=== PATIENT | male | born 1995 | race Caucasian/White ===

== ENCOUNTER 2017-01-12 14:04 | Emergency (ER) | payer BC ==
[~2017-01-12] VITALS: Ht 182.9 cm; Wt 83.1 kg
[2017-01-12 14:11] VITALS: Ht 182.9 cm; Wt 83.1 kg
[2017-01-12] MEDS ORDERED: SODIUM CHLORIDE 0.9% 1000ML 1,000 ML IV STA ×2 (14:17)
[2017-01-12 14:30] LABS: BASO % 0.3 %; BASO ABS # 0.03 K/uL (0-0.2); COMPLETE YES; HEMATOCRIT 48.3 % (42-52); IG% 0.2 %; LYMPH % 21.4 %; LYMPH ABS # 2.12 K/uL (1.2-3.4); MEAN CELL VOLUME 83.6 fL (80-100); MEAN CORPUSCULAR HEMOGLOBIN 30.1 pg (25-34); MONO % 8.9 %; NEUT % 68.2 %; PLATELET COUNT 268 K/uL (130-400); RED BLOOD COUNT 5.78 M/uL (4.7-6.1); WHITE BLOOD COUNT 9.91 K/uL (4.8-10.8)
[2017-01-12 14:49] LABS: BUN/CREATININE RATIO 9.6 (10-20); CREATININE 1.1 mg/dl (0.60-1.40)
[2017-01-12 15:07] LABS: URINE APPEARANCE CLEAR (CLEAR); URINE BILIRUBIN NEG (NEG); URINE COLOR YELLOW; URINE NITRITE NEG (NEG); URINE PH 7.5 (4.5-7.5); URINE SPECIFIC GRAVITY 1.007 (1.000-1.030); UROBILINOGEN NEG (NEG); ZZUR CULT IF INDIC CLEAN CATCH NO
[2017-01-12 15:08] LABS: MANUAL MICROSCOPIC REQUIRED? NO; REVIEW REQ? NO
[2017-01-12] MEDS ORDERED: OPTIRAY 320 IV PRN (15:45)
--- NOTE | 2017-01-12 15:56 | DIAGNOSTIC IMAGING REPORT ---
CT OF THE ABDOMEN AND PELVIS WITH CONTRAST CLINICAL HISTORY: Lower abdominal pain. Bloody stool. COMPARISON STUDY: None. TECHNIQUE: Following IV administration of 115 mL of Optiray-320, axial images of the abdomen and pelvis were obtained from the lung bases to the proximal femurs. Images were reviewed in the axial, sagittal, and coronal planes. IV contrast was administered without complication. CT DOSE: 362.16 mGy.cm FINDINGS: The liver, spleen, adrenal glands, kidneys and pancreas are normal. There is no hydronephrosis. The caliber and wall thickness of small and large bowel are normal. The appendix is partially visualized. Visualized portions of the appendix are normal in caliber, measuring 6 mm. There is no periappendiceal infiltration. There is no pneumatosis, free air or portal venous gas. Skeletal structures are unremarkable. Sensitivity for detection of mucosal lesions is diminished given CT technique. IMPRESSION: 1. No acute process within the abdomen or pelvis. 2. Decreased sensitivity for detection of mucosal lesions given CT technique. Electronically signed by: Héctor Rubio M.D. 01/12/2017 3:54 PM Dictated Date/Time: 01/12/2017 3:50 PM
[2017-01-12 17:12] VITALS: BP 116/66; PULSE 83; TEMP 36.8; O2SAT 100
--- NOTE | 2017-01-12 17:51 | EMERGENCY ROOM VISIT NOTE ---
History Report prepared by Wilber: Sammi Atkinson Under the Supervision of: Dr. Agustin Mccann M.D. First contact with patient: 14:16 Chief Complaint: GI ASSESSMENT Stated Complaint: BLOOD IN STOOL Nursing Triage Summary: Pt reports he began having bloody diarrhea starting last evening. Now presents in persistent bloody diarrhea and mild mid lower abdominal pain. Pt reports this has happened in the past and was told it was d/t his eating habits and drinking. History of Present Illness The patient is a 21 year old male who presents to the Emergency Room with complaints of persistent diarrhea that started last night. The patient has had two loose bowel movements since last night. He does notice small amounts of red blood in his stool. Additional associated symptoms include constant lower abdominal discomfort that he describes as a pressure. This discomfort started this morning. He rates this discomfort a 3/10 in intensity. It does feel a little better after a bowel movement. The patient had a similar episode of rectal bleeding a couple years ago. He states he followed up with GI who found a "red brittany" in his stomach via EGD. The patient notes that these symptoms are likely related to drinking alcohol as they occurred after an episode of binge drinking both times. The patient is otherwise healthy. He does not take any medications regularly. He denies prior surgeries and any significant family history. Pt denies LOC, headache, fevers, chills, diaphoresis, visual changes, neck pain , chest pain, breathing difficulties, nausea, vomiting, back pain, melena, rectal pain, urinary symptoms, numbness, weakness, lymphadenopathy, rash, or other complaints. Source of History: patient Onset: Last night Position: other (GI system) Timing: other (Persistent) Modifying Factors (Relieving): other (None) Associated Symptoms: + abdominal pain, + hematochezia Review of Systems See HPI for pertinent positives and negatives. A total of ten systems were reviewed and were otherwise negative. Past Medical & Surgical Medical Problems: (1) No chronic diseases present Family History Diabetes mellitus Social History Smoking Status: Never Smoker Alcohol Use: occasionally Drug Use: none Marital Status: single Housing Status: lives with roommate Occupation Status: [employer] student Current/Historical Medications No Active Prescriptions or Reported Meds Allergies Coded Allergies: Amoxicillin (Verified Allergy, Mild, RASH, 07/11/14) Physical Exam Vital Signs Date Time Temp Pulse Resp B/P Pulse Ox O2 Delivery O2 Flow Rate FiO2 4/15/17 17:12 36.8 83 18 116/66 100 01/12/17 17:11 83 18 116/66 100 Room Air 01/12/17 16:32 81 18 118/68 100 Room Air 01/12/17 14:41 90 01/12/17 14:11 36.8 97 18 158/108 100 Room Air Physical Exam GENERAL: Awake, alert, well-appearing, in no distress HENT: Normocephalic, atraumatic. Oropharynx unremarkable. EYES: Normal conjunctiva. Sclera non-icteric. NECK: Supple. No nuchal rigidity. FROM. No JVD. RESPIRATORY: Clear to auscultation. CARDIAC: Regular rate, normal rhythm. Extremities warm and well perfused. Pulses equal. ABDOMEN: Soft, non-distended. No tenderness to palpation. No rebound or guarding. No masses. RECTAL: No external abnormalities or fissure noted. No gross blood, but Hemoccult positive. MUSCULOSKELETAL: Chest examination reveals no tenderness. The back is symmetrical on inspection without obvious abnormality. There is no CVA tenderness to palpation. No joint edema. LOWER EXTREMITIES: Calves are equal size bilaterally and non-tender. No edema. No discoloration. NEURO: Normal sensorium. No sensory or motor deficits noted. SKIN: No rash or jaundice noted. Medical Decision & Procedures ER Provider Diagnostic Interpretation: CT results as stated below per my review and radiologist interpretation CT OF THE ABDOMEN AND PELVIS WITH CONTRAST CLINICAL HISTORY: Lower abdominal pain. Bloody stool. COMPARISON STUDY: None. TECHNIQUE: Following IV administration of 115 mL of Optiray-320, axial images of the abdomen and pelvis were obtained from the lung bases to the proximal femurs. Images were reviewed in the axial, sagittal, and coronal planes. IV contrast was administered without complication. CT DOSE: 362.16 mGy.cm FINDINGS: The liver, spleen, adrenal glands, kidneys and pancreas are normal. There is no hydronephrosis. The caliber and wall thickness of small and large bowel are normal. The appendix is partially visualized. Visualized portions of the appendix are normal in caliber, measuring 6 mm. There is no periappendiceal infiltration. There is no pneumatosis, free air or portal venous gas. Skeletal structures are unremarkable. Sensitivity for detection of mucosal lesions is diminished given CT technique. IMPRESSION: 1. No acute process within the abdomen or pelvis. 2. Decreased sensitivity for detection of mucosal lesions given CT technique. Electronically signed by: Héctor Rubio M.D. 01/12/2017 3:54 PM Dictated Date/Time: 01/12/2017 3:50 PM Laboratory Results 01/12/17 14:20 Red Blood Count 5.78, Mean Corpuscular Volume 83.6, Mean Corpuscular Hemoglobin 30.1, Mean Corpuscular Hemoglobin Concent 36.0, Mean Platelet Volume 10.0, Neutrophils (%) (Auto) 68.2, Lymphocytes (%) (Auto) 21.4, Monocytes (%) (Auto) 8.9, Eosinophils (%) (Auto) 1.0, Basophils (%) (Auto) 0.3, Neutrophils # (Auto) 6.76, Lymphocytes # (Auto) 2.12, Monocytes # (Auto) 0.88, Eosinophils # (Auto) 0.10, Basophils # (Auto) 0.03 01/12/17 14:20 Test 01/12/17 14:20 01/12/17 14:35 White Blood Count 9.91 K/uL (4.8-10.8) Red Blood Count 5.78 M/uL (4.7-6.1) Hemoglobin 17.4 g/dL (14.0-18.0) Hematocrit 48.3 % (42-52) Mean Corpuscular Volume 83.6 fL (80-100) Mean Corpuscular Hemoglobin 30.1 pg (25-34) Mean Corpuscular Hemoglobin Concent 36.0 g/dl (32-36) Platelet Count 268 K/uL (130-400) Mean Platelet Volume 10.0 fL (7.4-10.4) Neutrophils (%) (Auto) 68.2 % Lymphocytes (%) (Auto) 21.4 % Monocytes (%) (Auto) 8.9 % Eosinophils (%) (Auto) 1.0 % Basophils (%) (Auto) 0.3 % Neutrophils # (Auto) 6.76 K/uL (1.4-6.5) Lymphocytes # (Auto) 2.12 K/uL (1.2-3.4) Monocytes # (Auto) 0.88 K/uL (0.11-0.59) Eosinophils # (Auto) 0.10 K/uL (0-0.5) Basophils # (Auto) 0.03 K/uL (0-0.2) RDW Standard Deviation 36.2 fL (36.4-46.3) RDW Coefficient of Variation 12.0 % (11.5-14.5) Immature Granulocyte % (Auto) 0.2 % Immature Granulocyte # (Auto) 0.02 K/uL (0.00-0.02) Anion Gap 5.0 mmol/L (3-11) Est Creatinine Clear Calc Drug Dose 115.6 ml/min Estimated GFR () 109.9 Estimated GFR (Non- 94.8 BUN/Creatinine Ratio 9.6 (10-20) Calcium Level 10.0 mg/dl (8.5-10.1) Total Bilirubin 0.6 mg/dl (0.2-1) Direct Bilirubin 0.1 mg/dl (0-0.2) Aspartate Amino Transf (AST/SGOT) 16 U/L (15-37) Alanine Aminotransferase (ALT/SGPT) 30 U/L (12-78) Alkaline Phosphatase 71 U/L (45-117) Total Protein 9.3 gm/dl (6.4-8.2) Albumin 5.1 gm/dl (3.4-5.0) Lipase 115 U/L (73-393) Urine Color YELLOW Urine Appearance CLEAR (CLEAR) Urine pH 7.5 (4.5-7.5) Urine Specific [place] 1.007 (1.000-1.030) Urine Protein NEG (NEG) Urine Glucose (UA) NEG (NEG) Urine Ketones NEG (NEG) Urine Occult Blood NEG (NEG) Urine Nitrite NEG (NEG) Urine Bilirubin NEG (NEG) Urine Urobilinogen NEG (NEG) Urine Leukocyte Esterase NEG (NEG) Laboratory results reviewed by me Medications Administered Medications (Trade) Dose Ordered Sig/Kaitlin Route Start Time Stop Time Status Last Admin Dose Admin Sodium Chloride 1,000 ml @ 999 mls/hr Q1H1M STAT IV 01/12/17 14:17 01/12/17 15:17 DC 01/12/17 14:36 999 MLS/HR Sodium Chloride (Nss 1000ml) 1,000 ml @ 125 mls/hr Q8H STAT IV 01/12/17 14:17 01/12/17 22:16 01/12/17 15:17 125 MLS/HR ED Course 1410: The patient was evaluated in room B9. A complete history and physical exam was performed. 1417: Ordered Sodium Chloride 1,000 ml @ 125 mlshr IV, Sodium 1,000 ml @ 999 mls /hr IV. 1651: I reevaluated the patient. He is feeling much better. Discussed results and discharge instructions: He verbalized understanding and agreement. The patient is ready for discharge. He will follow up with GI back home. Medical Decision Triage Nursing notes reviewed. The patient's presentation and history were concerning for bloody stool and lower abdominal pain. Etiologies such as rectal fissure, hemorrhoids, appendicitis, diverticulitis, obstruction, inflammatory bowel disease, renal colic, PUD, biliary pathology, pancreatitis, mesenteric ischemia, aortic pathology, infections, genitourinary, UTI, perforated viscus, as well as others were entertained. The patient was evaluated. He declined analgesia. He was hydrated. His CBC, chemistry panel, LFTs and lipase were unremarkable. The patient has a negative urinalysis. He was unable to provide a stool sample. Rectal examination did reveal no gross blood but he did have heme positive stool. The patient underwent CT imaging. This did not reveal any significant findings. The patient has not had any travel or any recent antibiotic use. Suspicion for C. difficile is low. The patient is feeling better without direct intervention. I did offer consultation with GI but the patient prefers to follow-up back home since the semester is ending. I will have him follow up with [facility] for a recheck. If he worsens in any way he will come back to the emergency department here. His bleeding seems to be from a lower source. The patient has had some alcohol use. He will use an [id number] PPI until GI follow-up. He has not had any melena. He has no upper abdominal tenderness. He will refrain from alcohol use. I gave my usual and customary discussion regarding this issue. By the evaluation outlined above other emergent etiologies such as those listed in the differential, as well as others, were deemed relatively unlikely. The the patient was informed about the findings as listed above. All questions were answered and he was pleased with the treatment. Return instructions were outlined and the patient was discharged in stable condition. The patient was referred to [facility] for follow-up this week for a recheck of the current condition. The chart was completed utilizing Dragon Speech voice recognition software. Grammatical errors, random word insertions, pronoun errors, and incomplete sentences are an occasional consequence of this system due to software limitations, ambient noise, and hardware issues. Any formal questions or concerns about the content, text, or information contained within the body of this dictation should be directly addressed to the physician for clarification. Impression Primary Impression: Abdominal pain, left lower quadrant Additional Impression: Hematochezia Scribe Attestation The scribe's documentation has been prepared under my direction and personally reviewed by me in its entirety. I confirm that the note above accurately reflects all work, treatment, procedures, and medical decision making performed by me. Departure Information Dispostion Home / Self-Care Prescriptions No Active Prescriptions or Reported Meds Referrals No Doctor, Assigned (PCP) Forms HOME CARE DOCUMENTATION FORM, IMPORTANT VISIT INFORMATION Patient Instructions My [facility] Additional Instructions ABDOMINAL PAIN INSTRUCTIONS: Take an [id number] Prilosec once daily until followed up with GI. Acetaminophen(Tylenol) may be used for fever or pain. Use 1000mg every six hours as needed. Avoid using more than 4000mg in a 24 hour period. Rest and drink plenty of fluids as tolerated. Slow sips of water or sports drinks are recommended instead of large amounts all at once. Continue current medications. Once your stomach is settled start with a clear liquid diet (jello, soup broth, etc.) and then advance as tolerated. You should avoid full, heavy meals for about 24 hrs from the time your symptoms resolved. Return to the ER immediately for worsening or persistent abdominal pain, vomiting, fevers, chest pains, difficulty breathing, black or bloody stools, worsening of your condition, or as needed. Follow up with gastroenterology back home this coming week to set an appointment for the end of the semester. Follow-up with [facility] this week for a recheck. If the diarrhea issues are persisting an outpatient stool test should be performed. Problem Qualifiers
== END 2017-01-12 17:12 | disposition home or self-care (01) ==
LOC: C.EDB 14:05
DX: R10.32 Left lower quadrant pain (principal); K92.1 Melena; R19.7 Diarrhea, unspecified; Z83.3 Family history of diabetes mellitus